=== PATIENT | male | born 1950 | race Caucasian/White ===

== ENCOUNTER 2022-04-03 04:23 | Inpatient (IN) | payer OTHER ==
[~2022-04-03] VITALS: Ht 177.8 cm; Wt 106.0 kg
[2022-04-03 04:54] LABS: BASOPHILS % (AUTO) 0.3 % (0.0-5.0); EOSINOPHILS % (AUTO) 1.4 % (0.0-8.0); HEMATOCRIT 48.3 % (42-54); LYMPHOCYTES % (AUTO) 7.9 % (21.0-51.0); MEAN CORPUSCULAR HGB CONC 33.7 g/dL (32.0-36.0); MEAN CORPUSCULAR VOLUME 88.8 fL (79-99); MONOCYTES % (AUTO) 6.2 % (3.0-13.0); NEUTROPHILS % (AUTO) 83.4 % (40.0-77.0); PLATELET COUNT (AUTO) 102 K/uL (130-400); RED BLOOD CELL COUNT(AUTO) 5.44 MIL/uL (4.50-6.20); RED CELL DISTRIBUTION WIDTH 14.2 % (11.0-15.5); WHITE BLOOD COUNT (AUTO) 15.1 K/uL (4.8-10.8)
[2022-04-03] MEDS ORDERED: 0.9%NACL 1000ML 1,000 ML IV ONE (05:00)
[2022-04-03] MEDS ORDERED: IPRATROPIUM/ALBUTEROL SULFATE 3 ML SOLUTION IH ONE (05:00)
[2022-04-03] MEDS ORDERED: LACTATED RINGERS 1000ML IV ONE (05:30)
[2022-04-03] MEDS ORDERED: AZITHROMYCIN 500MG+NS 250ML 250 ML IV ONE (06:00)
[2022-04-03] MEDS ORDERED: AZITHROMYCIN 500MG+NS 250ML IVPB SCH (06:00)
[2022-04-03] MEDS ORDERED: AZITHROMYCIN 500MG+NS 250ML 250 ML ONE (06:00)
[2022-04-03] MEDS ORDERED: CEFTRIAXONE 1G VIAL IVP ONE (06:00)
[2022-04-03 06:19] LABS: BILIRUBIN,TOTAL 1.3 mg/dL (0.2-1.0); CREATININE 2.5 mg/dL (0.5-1.5); POTASSIUM 3.8 mmol/L (3.5-5.1); TOTAL PROTEIN, SERUM 7.3 g/dL (6.0-8.3)
[2022-04-03] MEDS ORDERED: AEC81 PO (07:51)
[2022-04-03] MEDS ORDERED: MULT-1289 PO (07:51)
[2022-04-03] MEDS ORDERED: ATOR10 PO (07:51)
[2022-04-03] MEDS ORDERED: SPIR25TA6 PO (07:51)
[2022-04-03] MEDS ORDERED: DOCU100T PO (07:51)
[2022-04-03] MEDS ORDERED: LOSA100T58 PO (07:51)
[2022-04-03] MEDS ORDERED: APIX5TAB PO (07:51)
[2022-04-03] MEDS ORDERED: METO25TA6 PO (07:51)
[2022-04-03] MEDS ORDERED: DEXTROSE 5 % AND 0.9 % NACL 1,000 ML IV SCH ×2 (08:30→16:00)
[2022-04-03] MEDS ORDERED: PHARMACY COMMUNICATION MISC SCH (08:30)
[2022-04-03] MEDS: THIAMINE HCL 100 MG/ML 2ML VIAL IVP SCH ×2 (09:00→09:57)
[2022-04-03] MEDS ORDERED: COMPOUND PO MISCELLANEOUS 1 EACH MISC MISC PRN (09:00)
[2022-04-03] MEDS: BUDESONIDE 0.5 MG/2 ML INH IH SCH ×2 (09:00→18:22)
[2022-04-03] MEDS ORDERED: PANTOPRAZOLE 40 MG/VIAL IVP ONE (09:00)
[2022-04-03 09:10] LABS: ABG BASE EXCESS -4.8 mmol/L (-2.0-3.0); ABG HCO3 17.9 mmol/L (21.0-28.0); ABG OXYGEN SATURATION 87.7 % (95.0-99.0); ABG PCO2 28 mmHg (35-48)
[2022-04-03] MEDS ORDERED: OSELTAMIVIR PHOSPHATE 75 MG CAP ONE (09:42)
[2022-04-03 09:44] LABS: APPEARANCE,URINE Cloudy (CLEAR); BILIRUBIN,URINE Negative (NEGATIVE); COLOR,URINE Yellow (YELLOW); GLUCOSE, URINE (UA) Negative (NEGATIVE); KETONES,URINE Negative (NEGATIVE); LEUKOCYTE ESTERASE ,URINE Negative (NEGATIVE); NITRATE,URINE Negative (NEGATIVE); OCCULT BLOOD,URINE Large (NEGATIVE); PROTEIN,URINE POS 1+ mg/dL (NEGATIVE); UROBILINOGEN,URINE 0.2 mg/dL (0.2-1.0)
[2022-04-03 09:45] LABS: CREATININE,URINE RANDOM 151 mg/dL (30-135); SODIUM,URINE RANDOM 24 mmol/l (40-220)
[2022-04-03] MEDS: METOPROLOL TARTRATE 25 MG TAB PO SCH ×2 (09:57→21:00)
[2022-04-03] MEDS: DOXYCYCLINE HYCLATE 100 MG TABLET PO SCH ×2 (09:57→21:44)
[2022-04-03] MEDS: CEFEPIME HCL 2 GM VIAL IVP SCH (09:57)
[2022-04-03] MEDS: PANTOPRAZOLE 40 MG/VIAL IVP SCH (09:57)
[2022-04-03] MEDS: OSELTAMIVIR SUSP 15 MG/ML (6 CAPS/29ML) PO SCH ×2 (10:02)
[2022-04-03 10:27] LABS: BACTERIA,URINE Rare /HPF (None Seen); SQUAMOUS EPITHELIAL CELL,UR Rare /HPF (0-2); WBC,URINE 0-1 /HPF (0-1)
[2022-04-03 10:42] LABS: HEMOGLOBIN A1C 5.9 % (4.0-6.0)
[2022-04-03] MEDS ORDERED: SODIUM CHLORIDE 3% FOR INHALATION 4 ML/AMP VIAL.NEB IH ONE (10:43)
[2022-04-03 10:48] LABS: INR 1.15 (0.85-1.15); PROTHROMBIN TIME 12.4 SEC (9.6-11.6)
[2022-04-03] MEDS ORDERED: IPRATROPIUM 0.5 MG/2.5 ML INH IH ONE (10:48)
[2022-04-03 10:49] LABS: PARTIAL THROMBOPLASTIN TIME 31.6 SEC (26.3-35.5)
[2022-04-03 10:57] LABS: MAGNESIUM 1.8 mg/dL (1.80-2.40); PHOSPHORUS 2.4 mg/dL (2.5-4.9); THYROID STIMULATING HORMONE 0.37 uIU/mL (0.36-3.74); URIC ACID 6.9 mg/dL (2.6-7.2)
[2022-04-03 11:03] LABS: CRP QUANTITATIVE 309.8 mg/L (0.00-9.0)
[2022-04-03] MEDS: IPRATROPIUM 0.5 MG/2.5 ML INH IH SCH ×3 (11:07→23:24)
[2022-04-03] MEDS: LINEZOLID 600 MG/ISO-OSM 300 ML IV SCH ×2 (12:13→23:30)
[2022-04-03] MEDS ORDERED: PHENAZOPYRIDINE HCL 200 MG TABLET PO ONE (12:30)
[2022-04-03] MEDS: GUAIFENESIN-DM 200/20 MG 10 ML PO PRN (14:17)
[2022-04-03] MEDS: Vitamin B Complex/Vit C/Folic Acid PO SCH (15:03)
[2022-04-03 15:39] LABS: POTASSIUM 3.7 mmol/L (3.5-5.1)
[2022-04-03] MEDS ORDERED: BUDESONIDE 0.5 MG/2 ML INH IH SCH (18:00)
[2022-04-03] MEDS: HEPARIN 5,000 UNIT VIAL SQ SCH (20:30)
[2022-04-03] MEDS: SODIUM BICARBONATE 650 MG TAB PO SCH (21:44)
[2022-04-03 23:29] LABS: ABG BASE EXCESS -4.3 mmol/L (-2.0-3.0); ABG HCO3 19.4 mmol/L (21.0-28.0); ABG OXYGEN SATURATION 97.2 % (95.0-99.0); ABG PCO2 32 mmHg (35-48)
[2022-04-04] VITALS (20 sets, daily range): BP systolic 119–149; BP diastolic 67–99
[2022-04-04] MEDS: DEXTROSE 5 % AND 0.9 % NACL 1,000 ML IV SCH ×2 (01:42→18:27)
[2022-04-04] MEDS: HEPARIN 5,000 UNIT VIAL SQ SCH (04:30)
[2022-04-04] MEDS: BUDESONIDE 0.5 MG/2 ML INH IH SCH ×2 (07:00→18:09)
[2022-04-04] MEDS: IPRATROPIUM 0.5 MG/2.5 ML INH IH SCH ×4 (07:00→23:52)
[2022-04-04 07:02] LABS: BASOPHILS % (AUTO) 0.3 % (0.0-5.0); EOSINOPHILS % (AUTO) 0.3 % (0.0-8.0); HEMATOCRIT 40.5 % (42-54); LYMPHOCYTES % (AUTO) 11.4 % (21.0-51.0); MEAN CORPUSCULAR HEMOGLOBIN 28.9 pg (27.0-33.0); MEAN CORPUSCULAR HGB CONC 32.6 g/dL (32.0-36.0); MEAN CORPUSCULAR VOLUME 88.6 fL (79-99); MONOCYTES % (AUTO) 5.8 % (3.0-13.0); NEUTROPHILS % (AUTO) 81.6 % (40.0-77.0); PLATELET COUNT (AUTO) 97 K/uL (130-400); RED BLOOD CELL COUNT(AUTO) 4.57 MIL/uL (4.50-6.20); RED CELL DISTRIBUTION WIDTH 14.5 % (11.0-15.5); WHITE BLOOD COUNT (AUTO) 10.3 K/uL (4.8-10.8)
[2022-04-04 07:43] LABS: B-TYPE NATRIURETIC PEPTIDE 195 pg/mL (0-100)
[2022-04-04 07:58] LABS: ALBUMIN 2.3 g/dL (3.5-5.0); BILIRUBIN,TOTAL 0.8 mg/dL (0.2-1.0); CREATININE 1.6 mg/dL (0.5-1.5); MAGNESIUM 1.7 mg/dL (1.80-2.40); PHOSPHORUS 2.4 mg/dL (2.5-4.9); POTASSIUM 3.2 mmol/L (3.5-5.1); TOTAL PROTEIN, SERUM 6.1 g/dL (6.0-8.3); URIC ACID 6.3 mg/dL (2.6-7.2)
[2022-04-04] MEDS: Vitamin B Complex/Vit C/Folic Acid PO SCH (08:19)
[2022-04-04] MEDS: DOXYCYCLINE HYCLATE 100 MG TABLET PO SCH ×2 (08:19→21:01)
[2022-04-04] MEDS: THIAMINE HCL 100 MG/ML 2ML VIAL IVP SCH ×2 (08:19)
[2022-04-04] MEDS: METOPROLOL TARTRATE 25 MG TAB PO SCH ×2 (08:19→21:02)
[2022-04-04] MEDS: SODIUM BICARBONATE 650 MG TAB PO SCH (08:19)
[2022-04-04] MEDS: CEFEPIME HCL 2 GM VIAL IVP SCH (08:19)
[2022-04-04] MEDS: PANTOPRAZOLE 40 MG/VIAL IVP SCH (08:19)
[2022-04-04] MEDS: OSELTAMIVIR SUSP 15 MG/ML (6 CAPS/29ML) PO SCH ×2 (08:48)
[2022-04-04] MEDS ORDERED: MAGNESIUM 2GM PREMIX 50ML 50 ML IV SCH (09:00)
[2022-04-04] MEDS ORDERED: PREDNISONE 20 MG TABLET PO SCH (09:00)
[2022-04-04] MEDS: ENOXAPARIN SODIUM 100 MG/1 ML SQ SCH ×2 (09:00→21:05)
[2022-04-04] MEDS ORDERED: POTASSIUM CHLORIDE 10% ELIXIR 20 MEQ/15 ML UDCUP PO PRN (09:00)
[2022-04-04 09:51] LABS: CRP QUANTITATIVE 301.7 mg/L (0.00-9.0)
[2022-04-04 10:10] LABS: MYOGLOBIN 1681 ng/mL (10-92)
[2022-04-04 10:13] LABS: CREATINE KINASE, TOTAL 4707 U/L (21-232)
[2022-04-04] MEDS: KCL 20 MEQ ERTAB PO PRN ×2 (10:24→12:30)
[2022-04-04] MEDS: MAGNESIUM CHLORIDE 70 MG TABLET.SA PO SCH (10:25)
[2022-04-04] MEDS ORDERED: PHARMACY COMMUNICATION MISC SCH (10:30)
[2022-04-04] MEDS: SODIUM BICARB 8.4% 50ML SYRING 150 MEQ in DEXTROSE 5%-WATER 1,000 ML IV SCH ×3 (10:38→23:06)
[2022-04-04] MEDS ORDERED: POTASSIUM CHLORIDE 20MEQ/100ML 100 ML IV PRN (11:00)
[2022-04-04] MEDS ORDERED: LIDOCAINE HCL-MPF 1% 2ML VIAL IV PRN (11:00)
[2022-04-04] MEDS: LINEZOLID 600 MG/ISO-OSM 300 ML IV SCH ×2 (12:30→23:09)
[2022-04-04] MEDS: SOLU-MEDROL 40MG VIAL IVP SCH ×2 (13:34→23:09)
[2022-04-04] MEDS ORDERED: SOLU-MEDROL 40MG VIAL IVP SCH (14:00)
[2022-04-04 14:50] LABS: MYOGLOBIN 1169 ng/mL (10-92)
[2022-04-04 14:55] LABS: CREATINE KINASE, TOTAL 4682 U/L (21-232)
[2022-04-04] MEDS: CEFEPIME HCL 1 GM VIAL IVP SCH (21:01)
[2022-04-04 21:44] LABS: MYOGLOBIN 720 ng/mL (10-92)
[2022-04-04 21:47] LABS: CREATINE KINASE, TOTAL 3803 U/L (21-232)
[2022-04-04] MEDS: BENZONATATE 100 MG CAPSULE PO PRN (23:21)
[2022-04-04] MEDS: GUAIFENESIN-DM 200/20 MG 10 ML PO PRN (23:21)
[2022-04-05] VITALS (38 sets, daily range): BP systolic 101–138; BP diastolic 59–88
[2022-04-05 03:25] LABS: ABG BASE EXCESS 0.8 mmol/L (-2.0-3.0); ABG HCO3 24.2 mmol/L (21.0-28.0); ABG OXYGEN SATURATION 96.1 % (95.0-99.0); ABG PCO2 35 mmHg (35-48)
[2022-04-05 03:44] LABS: HEMATOCRIT 42.1 % (42-54); MEAN CORPUSCULAR HEMOGLOBIN 29.9 pg (27.0-33.0); MEAN CORPUSCULAR VOLUME 88.1 fL (79-99); PLATELET COUNT (AUTO) 106 K/uL (130-400); RED BLOOD CELL COUNT(AUTO) 4.78 MIL/uL (4.50-6.20); RED CELL DISTRIBUTION WIDTH 14.4 % (11.0-15.5); WHITE BLOOD COUNT (AUTO) 9.2 K/uL (4.8-10.8)
[2022-04-05 04:20] LABS: ALBUMIN 2.3 g/dL (3.5-5.0); BILIRUBIN,TOTAL 0.9 mg/dL (0.2-1.0); CREATININE 1.4 mg/dL (0.5-1.5); MAGNESIUM 2.6 mg/dL (1.80-2.40); PHOSPHORUS 2.1 mg/dL (2.5-4.9); POTASSIUM 4.1 mmol/L (3.5-5.1); TOTAL PROTEIN, SERUM 6.6 g/dL (6.0-8.3)
[2022-04-05 05:13] LABS: BAND NEUTROPHILS % (MANUAL) 1 % (0-2); LYMPHOCYTES % (MANUAL) 14 % (22-44); MONOCYTES % (MANUAL) 2 % (2-9); SEGMENTED NEUTROPHILS % 83 % (40-70)
[2022-04-05 05:14] LABS: MAN.DIFF COMMENT-IMPRESSION MANUAL DIFFERENTIAL; PLATELET MORPHOLOGY COMMENT SLIGHTLY DECREASED
[2022-04-05] MEDS: SOLU-MEDROL 40MG VIAL IVP SCH (06:16)
[2022-04-05] MEDS: BUDESONIDE 0.5 MG/2 ML INH IH SCH ×2 (06:35→18:27)
[2022-04-05] MEDS: IPRATROPIUM 0.5 MG/2.5 ML INH IH SCH ×4 (06:35→23:47)
[2022-04-05] MEDS: CEFEPIME HCL 1 GM VIAL IVP SCH ×2 (08:10→20:29)
[2022-04-05] MEDS: METOPROLOL TARTRATE 25 MG TAB PO SCH ×2 (08:10→20:29)
[2022-04-05] MEDS: MAGNESIUM CHLORIDE 70 MG TABLET.SA PO SCH (08:10)
[2022-04-05] MEDS: DOXYCYCLINE HYCLATE 100 MG TABLET PO SCH ×2 (08:10→20:29)
[2022-04-05] MEDS: PANTOPRAZOLE 40 MG/VIAL IVP SCH (08:10)
[2022-04-05] MEDS: Vitamin B Complex/Vit C/Folic Acid PO SCH (08:10)
[2022-04-05] MEDS: ENOXAPARIN SODIUM 100 MG/1 ML SQ SCH ×2 (08:11→20:29)
[2022-04-05] MEDS: BISACODYL 5 MG TABLET.DR PO SCH ×2 (08:24→20:31)
[2022-04-05] MEDS: OSELTAMIVIR SUSP 15 MG/ML (6 CAPS/29ML) PO SCH ×2 (09:00)
[2022-04-05] MEDS ORDERED: OSELTAMIVIR PHOSPHATE 75 MG CAP PO SCH (09:44)
[2022-04-05] MEDS: LINEZOLID 600 MG/ISO-OSM 300 ML IV SCH (10:26)
[2022-04-05] MEDS: SODIUM BICARB 8.4% 50ML SYRING 150 MEQ in DEXTROSE 5%-WATER 1,000 ML IV SCH ×2 (10:56→20:31)
[2022-04-05 13:24] LABS: HEMOGLOBIN A1C 5.8 % (4.0-6.0)
[2022-04-05] MEDS ORDERED: SOLU-MEDROL 40MG VIAL IVP SCH (14:00)
[2022-04-05 14:04] LABS: HEMOGLOBIN A1C 5.9 % (4.0-6.0)
[2022-04-05 14:27] LABS: MYOGLOBIN 445 ng/mL (10-92)
[2022-04-05 14:32] LABS: CREATINE KINASE, TOTAL 2107 U/L (21-232)
[2022-04-05] MEDS: GUAIFENESIN-DM 200/20 MG 10 ML PO PRN (20:29)
[2022-04-05] MEDS: BENZONATATE 100 MG CAPSULE PO PRN (20:30)
[2022-04-05] MEDS: BALSAM PERU/CASTOR OIL 60 GM TUBE TP SCH (20:30)
[2022-04-05 21:27] LABS: MYOGLOBIN 435 ng/mL (10-92)
[2022-04-05 21:32] LABS: CREATINE KINASE, TOTAL 1576 U/L (21-232)
[2022-04-06 03:19] VITALS: BP 129/59
[2022-04-06 05:18] LABS: BASOPHILS % (AUTO) 0.2 % (0.0-5.0); HEMATOCRIT 35.1 % (42-54); LYMPHOCYTES % (AUTO) 9.3 % (21.0-51.0); MEAN CORPUSCULAR HEMOGLOBIN 29.4 pg (27.0-33.0); MEAN CORPUSCULAR HGB CONC 34.2 g/dL (32.0-36.0); MONOCYTES % (AUTO) 3.6 % (3.0-13.0); NEUTROPHILS % (AUTO) 85.5 % (40.0-77.0); PLATELET COUNT (AUTO) 126 K/uL (130-400); RED BLOOD CELL COUNT(AUTO) 4.08 MIL/uL (4.50-6.20); RED CELL DISTRIBUTION WIDTH 14.1 % (11.0-15.5); WHITE BLOOD COUNT (AUTO) 13.8 K/uL (4.8-10.8)
[2022-04-06 05:54] LABS: ALBUMIN 1.9 g/dL (3.5-5.0); BILIRUBIN,TOTAL 0.7 mg/dL (0.2-1.0); CREATININE 1.3 mg/dL (0.5-1.5); MAGNESIUM 2.1 mg/dL (1.80-2.40); PHOSPHORUS 2.1 mg/dL (2.5-4.9); POTASSIUM 3.1 mmol/L (3.5-5.1); TOTAL PROTEIN, SERUM 5.2 g/dL (6.0-8.3)
[2022-04-06] MEDS: KCL 20 MEQ ERTAB PO PRN ×2 (06:15→08:11)
[2022-04-06] MEDS: IPRATROPIUM 0.5 MG/2.5 ML INH IH SCH ×2 (06:45→11:29)
[2022-04-06] MEDS: BUDESONIDE 0.5 MG/2 ML INH IH SCH (06:45)
[2022-04-06] MEDS: INSULIN HUMULIN R 100 UNIT/ML 3ML SQ SCH ×3 (07:30→16:30)
[2022-04-06 08:00] VITALS: BP 127/71
[2022-04-06] MEDS: CEFEPIME HCL 1 GM VIAL IVP SCH (08:11)
[2022-04-06] MEDS: DOXYCYCLINE HYCLATE 100 MG TABLET PO SCH (08:12)
[2022-04-06] MEDS: Vitamin B Complex/Vit C/Folic Acid PO SCH (08:13)
[2022-04-06] MEDS: METOPROLOL TARTRATE 25 MG TAB PO SCH (08:13)
[2022-04-06] MEDS: BISACODYL 5 MG TABLET.DR PO SCH (08:14)
[2022-04-06] MEDS: NEUTRA-PHOS PACKET 1 EACH PO SCH ×2 (08:15→15:19)
[2022-04-06] MEDS: MAGNESIUM CHLORIDE 70 MG TABLET.SA PO SCH (08:20)
[2022-04-06] MEDS ORDERED: RENAL DOSE IV SCH (08:30)
[2022-04-06] MEDS ORDERED: APIXABAN 5 MG TABLET PO SCH (09:00)
[2022-04-06] MEDS ORDERED: ASPIRIN 81 MG EC TAB PO SCH (09:00)
[2022-04-06] MEDS ORDERED: PANTOPRAZOLE 40 MG TAB DR PO SCH (09:00)
[2022-04-06] MEDS ORDERED: PREDNISONE 20 MG TABLET PO SCH (09:00)
[2022-04-06] MEDS ORDERED: LOSARTAN 25 MG TABLET PO SCH (09:00)
[2022-04-06] MEDS ORDERED: SPIRONOLACTONE 25 MG TAB PO SCH (09:00)
[2022-04-06] MEDS: BALSAM PERU/CASTOR OIL 60 GM TUBE TP SCH ×2 (09:07→15:18)
[2022-04-06 11:54] VITALS: BP 118/68
[2022-04-06 16:30] VITALS: BP 132/75
[2022-04-06 16:31] LABS: CREATININE 1.4 mg/dL (0.5-1.5); POTASSIUM 3.5 mmol/L (3.5-5.1)
[2022-04-06] MEDS ORDERED: PRED20B PO (16:45)
[2022-04-06] MEDS ORDERED: DOXY100T2 PO (16:45)
[2022-04-06] MEDS ORDERED: LOSA25TA2 PO (16:45)
[2022-04-06] MEDS ORDERED: OSEL75 PO (16:45)
[2022-04-06] MEDS: GUAIFENESIN-DM 200/20 MG 10 ML PO PRN (16:58)
== END 2022-04-06 19:00 | disposition home or self-care (01) | DRG 871 ==
LOC: EDH 04:23 → EDHIP 08:37 → 2CH 04-04 17:45 → 3AH 04-06 09:27
PROVIDERS: ADMIT Internal Medicine; ATTEND Internal Medicine
PROC: 5A09357 Assistance with Respiratory Ventilation, Less than 24 Consecutive Hours, Continuous Positive Airway Pressure (ICD-10-PCS; principal; 2022-04-04)
DX: A41.9 Sepsis, unspecified organism (principal); J96.01 Acute respiratory failure with hypoxia; G92.8 Other toxic encephalopathy; J15.6 Pneumonia due to other Gram-negative bacteria; N17.9 Acute kidney failure, unspecified; M62.82 Rhabdomyolysis; E44.0 Moderate protein-calorie malnutrition; D68.59 Other primary thrombophilia; E87.1 Hypo-osmolality and hyponatremia; I48.20 Chronic atrial fibrillation, unspecified; E87.2 Acidosis; J10.1 Influenza due to other identified influenza virus with other respiratory manifestations; R65.20 Severe sepsis without septic shock; D69.6 Thrombocytopenia, unspecified; E78.5 Hyperlipidemia, unspecified; E86.0 Dehydration; E88.09 Other disorders of plasma-protein metabolism, not elsewhere classified; R54 Age-related physical debility; I10 Essential (primary) hypertension; E87.6 Hypokalemia; D72.810 Lymphocytopenia; E11.65 Type 2 diabetes mellitus with hyperglycemia; L89.151 Pressure ulcer of sacral region, stage 1; E83.39 Other disorders of phosphorus metabolism; E83.42 Hypomagnesemia; Z20.822 Contact with and (suspected) exposure to COVID-19; Z68.33 Body mass index [BMI] 33.0-33.9, adult; Z79.01 Long term (current) use of anticoagulants; Z95.810 Presence of automatic (implantable) cardiac defibrillator; Z90.49 Acquired absence of other specified parts of digestive tract; Z87.891 Personal history of nicotine dependence; E86.1 Hypovolemia
CPT/HCPCS: 36415; 36600; 70450; 71045; 71250; 74018; 76770; 80048; 80053; 81001; 82140; 82435; 82550; 82570; 82803; 82947; 82948; 83036; 83605; 83735; 83874; 83880; 84100; 84132; 84145; 84295; 84300; 84443; 84484; 84540; 84550; 85018; 85025; 85610; 85651; 85730; 86140; 86738; 87040; 87046; 87071; 87088; 87205; 87324; 87449; 87507; 87635; 87804; 92610; 93005; 93306; 93356; 94640; 94660; 94664; 94760; 97039; 99291; C9113; C9803; G0378; J0456; J0692; J0696; J1644; J1650; J2020; J2920; J3411; J3475; J3480; J3490; J7042; J7070

== ENCOUNTER 2023-01-16 23:35 | Emergency (ER) | payer OTHER ==
[~2023-01-16] VITALS: Ht 175.3 cm; Wt 99.8 kg
[~2023-01-16 23:35] MED LIST: AEC81 PO; APIX5TAB PO; ATOR10 PO; DOCU100T PO; DOXY100T2 PO; LOSA25TA2 PO; METO25TA6 PO; MULT-1289 PO; OSEL75 PO; PRED20B PO; SPIR25TA6 PO
[2023-01-17] MEDS ORDERED: ONDANSETRON 4MG INJ IVP ONE
[2023-01-17 00:02] LABS: APPEARANCE,URINE CLEAR (CLEAR); BILIRUBIN,URINE NEGATIVE (NEGATIVE); COLOR,URINE LIGHT-YELLOW (YELLOW); GLUCOSE, URINE (UA) NEGATIVE (NEGATIVE); KETONES,URINE 10 mg/dL (NEGATIVE); LEUKOCYTE ESTERASE ,URINE NEGATIVE Leu/uL (NEGATIVE); NITRATE,URINE NEGATIVE (NEGATIVE); OCCULT BLOOD,URINE MODERATE (NEGATIVE); PH,URINE 5.5 (5.0-8.0); PROTEIN,URINE 30 mg/dL (NEGATIVE); UROBILINOGEN,URINE 0.2 mg/dL (0.2-1.0)
[2023-01-17 00:11] LABS: MUCUS,URINE RARE LPF (None Seen); SQUAMOUS EPITHELIAL CELL,UR RARE /HPF (0-2)
[2023-01-17 00:32] LABS: POTASSIUM 4.6 mmol/L (3.5-5.1)
[2023-01-17 00:36] LABS: ALBUMIN 3.4 g/dL (3.5-5.0); TOTAL PROTEIN, SERUM 6.7 g/dL (6.0-8.3)
[2023-01-17 00:38] LABS: BASOPHILS % (AUTO) 0.4 % (0.0-5.0); EOSINOPHILS % (AUTO) 0.5 % (0.0-8.0); HEMATOCRIT 51.9 % (42-54); LYMPHOCYTES % (AUTO) 13.6 % (21.0-51.0); MEAN CORPUSCULAR HEMOGLOBIN 29.4 pg (27.0-33.0); MEAN CORPUSCULAR HGB CONC 34.3 g/dL (32.0-36.0); MEAN CORPUSCULAR VOLUME 85.6 fL (79-99); MONOCYTES % (AUTO) 4.4 % (3.0-13.0); NEUTROPHILS % (AUTO) 80.6 % (40.0-77.0); PLATELET COUNT (AUTO) 150 K/uL (130-400); RED BLOOD CELL COUNT(AUTO) 6.06 MIL/uL (4.50-6.20); RED CELL DISTRIBUTION WIDTH 13.7 % (11.0-15.5); WHITE BLOOD COUNT (AUTO) 15.4 K/uL (4.8-10.8)
[2023-01-17] MEDS ORDERED: MORPHINE 2 MG SYG IVP ONE ×2 (04:00)
[2023-01-17] MEDS ORDERED: ACET-66 PO (06:16)
[2023-01-17 06:46] VITALS: BP 122/73
== END 2023-01-17 06:50 | disposition home or self-care (01) ==
LOC: EDH 23:35
DX: N28.1 Cyst of kidney, acquired (principal); R10.12 Left upper quadrant pain; E78.00 Pure hypercholesterolemia, unspecified; I10 Essential (primary) hypertension; I48.91 Unspecified atrial fibrillation; J44.9 Chronic obstructive pulmonary disease, unspecified; Z79.899 Other long term (current) drug therapy; Z79.82 Long term (current) use of aspirin; Z90.49 Acquired absence of other specified parts of digestive tract; Z98.890 Other specified postprocedural states
CPT/HCPCS: 99285; 71045; 84484; 80053; 83690; 85025; 83605; 81001; 36415; 93005; 74176; 96374; 76770; 96375; 96376; J2405